=== PATIENT | male | born 1990 | race Hispanic/Latino ===

== ENCOUNTER 2018-07-13 18:25 | Emergency (ER) | payer BC ==
--- NOTE | 2018-07-13 19:31 | RAD ---
THREE VIEWS OF THE LEFT GREAT TOE 07/13/18 HISTORY: Left great toe pain. FINDINGS: Three views of the left great toe shows diffuse soft tissue swelling. No fracture or dislocation are seen. No degenerative changes are present. IMPRESSION: Soft tissue swelling without underlying osseous abnormality. POS: [facility]
== END 2018-07-13 19:33 | disposition home or self-care (01) ==
LOC: ERS 18:25
DX: S90.212A Contusion of left great toe with damage to nail, initial encounter (principal); W20.8XXA Other cause of strike by thrown, projected or falling object, initial encounter
CPT/HCPCS: 11740